=== PATIENT | female | born 1965 | race American Indian/Alaskan Native ===

== ENCOUNTER 2019-02-26 12:11 | Outpatient (CLI) | payer MEDICARE, OTHER ==
[2019-02-26] MEDS ORDERED: LASIX ONE (12:47)
[2019-02-26] MEDS ORDERED: LASIX IV SCH (12:48)
[2019-02-26 13:24] VITALS: BP 132/86
--- NOTE | 2019-02-26 15:07 | Nuclear Medicine Report ---
NUCLEAR MEDICINE RENAL SCAN WITH CAPTOPRIL/LASIX HISTORY: Right flank pain TECHNIQUE: Posterior flow and function images were obtained following 5 mCi of technetium 99m MAG3. R enogram curves were constructed. COMPARISON: None. FINDINGS: The posterior flow images demonstrate normal and symmetric perfusion to both kidneys. The posterior function images demonstrate normal uptake in excretion of the radiotracer bilaterally. There is no evidence for obstruction. 20 mg of IV Lasix was administered at 20 minutes which enhances urinary excretion although no obstruc tion is present. Split function measures 58.5% on the left and 41.5% on the right. IMPRESSION: Normal exam. No evidence for mechanical obstruction. Split function measures 58.5% left kidney and 41.5% right kidney. Signer Name: Francisco Rodriguez Jr, MD Signed: 02/26/2019 3:03 PM Workstation Name: [id number]
== END 2019-02-26 12:12 | disposition home or self-care (01) ==
LOC: NM 12:11
PROVIDERS: ATTEND Urology
DX: R10.9 Unspecified abdominal pain (principal); I10 Essential (primary) hypertension; Z90.710 Acquired absence of both cervix and uterus
CPT/HCPCS: 78708; A9562; J1940